=== PATIENT | male | born 1985 | race Hispanic/Latino ===

== ENCOUNTER 2022-03-04 00:04 | Emergency (ER) | payer BC ==
--- OUTSIDE RECORDS SUMMARY | 2022-03-04 00:08 | XMS REPORT | Continuity of Care Document ---
:1985 Author Organization [facility] t Address [address] [place] [address] Care Team Providers Name Role Phone PCP, DOES NOT HAVE A Primary Care Physician Unavailable Fifi NUR Attending Clinician Unavailable Doctor Unassigned, Name Attending Clinician Unavailable EFREN Attending Clinician Unavailable MANJINDER Attending Clinician Unavailable LUIS E Attending Clinician Unavailable Penny PATINO Attending Clinician Unavailable SHIRA ALLISON Attending Clinician Unavailable Penny PATINO Admitting Clinician Unavailable SHIRA ALLISON Admitting Clinician Unavailable Payers Payer Name Policy Type Policy Number Effective Date [facility] Date [id number] 2018 00:00:00 OUT OF STATE Problems Condition Condition Condition Status Onset Resolution Last Treating Co mments Source Name Details Category Date Date Treatment Clinician Date No known No known Disease Unive rs active active ity of problems problems [facility] Gastroesop Gastroesop Problem Active C ommon hageal hageal [facility] reflux reflux - [facility] disease disease [facility] Elevated Elevated Problem Active Commo n BP without BP without Sp traci diagnosis diagnosis - CH I of of St hypertensi hypertensi [facility] Rash and Rash and Problem Active Commo n nonspecifi nonspecifi Sp traci c skin c skin - [facility] eruption eruption [facility] Skin Skin Problem Active Common lesions lesions Spirit - [facility] Left Left Problem Active Common shoulder shoulder Spirit pain, pain, - [facility] unspecifie unspecifie [facility] d 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 Sp traci [facility] Prediabete Prediabete Diagnosis Active Common s s [facility] Hyperglyce Hyperglyce Problem Active C ommon reyna reyna [facility] Elevated Elevated Problem Active Commo n liver liver Spirit enzymes enzymes [facility] Fatty Fatty Diagnosis Active Common liver liver [facility] Hepatosple Hepatosple Diagnosis Active Common nomegaly nomegaly [facility] Essential Essential Diagnosis Active C ommon hypertensi hypertensi Sp traci on on [facility] Follow-up Follow-up Diagnosis Active C ommon exam exam [facility] Viral Viral Diagnosis Active Common gastroente gastroente Sp traci ritis ritis [facility] Allergies, Adverse Reactions, Alerts Allergy Allergy Status Severity Reaction(s) Onset Inactive Treating Comm ents Source Name Type Date Date Clinician NO KNOWN Drug Active Univers ALLERGIE Class it of [facility] Social History Social Habit Start Date Stop Date Quantity Comments Source Sex Assigned At [birth year] [facility] 00:00:00 00:00:00 [facility] Smoking Status Start Date Stop Date Source Unknown if ever smoked [facility] Medications Ordered Filled Start Stop Current Ordering Indication Dosage Frequency Signature Comments Components Source Medication Medication Date Date Medication? Clinician (SIG) Name Name ondansetron Yes [id number] 4mg Take 1 U nivers 4 mg 2-08 tablet by ity of disintegrat 00:00: mouth [place] ing tablet 00 every 8 Medica l (eight) Branch hours as needed for Nausea and Vomiting (N/V). enalapril 2018-09 Yes 10mg Take 10 mg Un heike 20 mg 2-08 by mouth ity of tablet 23:07: daily. [address] omeprazole 2018-09 Yes 20mg Take 20 mg U nivers 20 mg 2-08 by mouth ity of capsule 23:07: daily. [address] traMADol 50 2018- Yes [id number] 50mg Take 1 Univers mg tablet 2-08 tablet by ity o f 00:00: mouth 00 every 6 Medical (six) Branch hours as needed (pain). proMETHazin 2018-09 Yes [id number] 25mg Take 1 Univers e 25 mg 2-08 tablet by ity of tablet 00:00: mouth every 6 Medical (six) Branch hours as needed for Nausea and Vomiting (N/V). Enalapril Enalapril Yes Megan 1 tablet Common Maleate Maleate 05-31 Mill[facility] Spir it 00:00: - [facility] Prevacid Prevacid Yes Megan 1 capsule Common 05-31 [facility] Spirit 00:00: - [facility] Procedures Procedure Date / Time Performed Performing Clinician Sour e EXTERNAL PROVIDER - 2021-07-04 05:01:00 Doctor Unassigned, No Un [facility] REFERRAL Name [facility] Encounters Start End Encounter Admission Attending Care Care Encounter Source Date/Time Date/Time Type Type Clinicians Facility Department ID 2021-07-27 Emergency [facility] [id number] Univers 13:47:51 ity [facility] 2021-07-13 2021-07-13 [id number] Univers 15:30:00 15:30:00 SENDIL [id number] ity [facility] 2021-07-13 2021-07-13 [facility] [id number] Univers 15:30:00 15:30:00 [facility] 2021-07-04 Orders Doctor RAMEY [id number] Univers 00:00:00 00:00:00 Only Unassigned, SEEMA [id number] ity of [facility] [id number] Christiano as [phone] [address] 2020-09-02 2020-09-02 Outpatient R [facility] [id number] Univers 10:40:00 10:40:00 [id number] ity [facility] 2020-09-02 2020-09-02 [facility] [id number] Univers 10:40:00 10:40:00 MAYISTACIE romero [facility] 2020-06-25 2020-06-25 Outpatient R [facility] [id number] Univers 18:00:00 18:00:00 [id number] ity [facility] 2020-06-25 2020-06-25 Outpatient R MANJINDER, [facility] [id number] Univers 18:00:00 18:00:00 NORRIS alex [facility] 2020-03-29 2020-03-29 Outpatient R LUIS E, [facility] [id number] Univers 10:00:00 10:00:00 CATIE [facility] 2019-11-03 2019-11-04 Emergency [facility] [id number] Univers 21:50:45 00:01:00 ALDO romero [facility] 2019-09-05 2019-09-05 [facility] [id number] Common 08:40:00 08:40:00 t [facility] it Road [facility] 2019-09-02 2019-09-02 Emergency X ESTEFANY [facility] ERT [id number] Univers 21:43:20 23:09:00 PERI romero [facility] 2019-07-03 2019-07-03 [facility] [id number] Common 11:00:00 11:00:00 t [facility] Road [facility] it Road [facility] 2019-06-25 2019-06-25 Outpatient [facility] [id number] Common 09:45:00 09:45:00 t [facility] Road [facility] it Road [facility] 2019-06-21 2019-06-21 Outpatient [facility] [id number] Common 13:00:00 13:00:00 t [facility] [address] Spir it Road [facility] 2019-05-31 2019-05-31 Outpatient [facility] [id number] Common 11:20:00 11:20:00 t [facility] Road [facility] it Road [facility] Results This patient has no known results.
[2022-03-04 01:23] LABS: Urine Blood 3+ (Negative); Urine Glucose Negative (Negative); Urine Protein Negative (Negative); Urine Specific Gravity >=1.030 (1.005-1.030); Urine pH 5.5 (5.0-7.0)
[2022-03-04] MEDS ORDERED: ONDANSETRON 4 MG/2 ML VIAL ONE (02:14)
[2022-03-04] MEDS ORDERED: MAGNESIUM SULFATE 1 gm IVPB 1 GM/100 ML BAG IV ONE (02:14)
[2022-03-04] MEDS ORDERED: TAMSULOSIN 0.4 MG SR CAP ONE (02:14)
[2022-03-04] MEDS ORDERED: MORPHINE 4 MG/ML SYR ONE (02:14)
[2022-03-04 02:23] LABS: Absolute Lymphocytes (CBC) 1.8 K/uL (0.7-4.9); Hematocrit 40.9 % (39.6-49.0); Lymphocytes % 28.4 % (15.3-44.8); MPV 9.3 fL (7.6-11.3); RBC Red Blood Cell Count 4.96 M/uL (4.33-5.43)
--- NOTE | 2022-03-04 02:46 | EDPHYS ---
Physician Documentation [facility] Name: Anurag Hernandez Age: 36 yrs Sex: Male : 1985 Arrival Date: 03/04/2022 Time: 00:12 Bed 16 Private MD: ED Physician Yasir Ledezma HPI: 03/04 00:54 This 36 yrs old Male presents to ER via Ambulatory with complaints of rn Abdominal Pain, Back Pain. 00:54 The patient presents with pain that is acute. The symptoms are located in the low back, rn right flank. Onset: The symptoms/episode began/occurred today. The pain radiates to the abdomen and pelvis. Associated signs and symptoms: Pertinent positives: dysuria, nausea, Pertinent negatives: fever, incontinence. Modifying factors: The patient symptoms are alleviated by nothing, the patient symptoms are aggravated by any movement. Severity of symptoms: At their worst the symptoms were moderate, in the emergency department the symptoms have improved. The patient has not experienced similar symptoms in the past. The patient has not recently seen a physician. Sudden onset of right flank pain with radiation to groin, father had kidney stones, patient never diagnosed with kidney stones. Reports sensation of having to urinate but difficulty urinating. No trauma. No vomiting or diarrhea. . Historical: - Allergies: 00:33 No Known Allergies; vc1 - Home Meds: 00:33 None [Active]; vc1 - PMHx: 00:33 Hypertensive disorder; Diabetes mellitus; vc1 - PSHx: 00:33 None; vc1 - Immunization history:: Adult Immunizations up to date, Client reports having NOT received the Covid vaccine. - Social history:: Smoking status: Patient denies any tobacco usage or history of. - Family history:: not pertinent. - Hospitalizations: : No recent hospitalization is reported. ROS: 00:54 Constitutional: Negative for fever, chills, and weight loss, Cardiovascular: Negative rn for chest pain, palpitations, and edema, Respiratory: Negative for shortness of breath, cough, wheezing, and pleuritic chest pain, Abdomen/GI: Negative for vomiting, diarrhea, and constipation, Back: + right flank pain : + dysuria MS/Extremity: Negative for injury and deformity, Skin: Negative for injury, rash, and discoloration, Neuro: Negative for headache, weakness, numbness, tingling, and seizure. Exam: 00:54 Constitutional: This is a well developed, well nourished patient who is awake, alert, rn and in no acute distress. Head/Face: Normocephalic, atraumatic. Cardiovascular: Regular rate and rhythm. No pulse deficits. Respiratory: No increased work of breathing, no retractions or nasal flaring. Abdomen/GI: soft, non-tender Back: No spinal tenderness. No costovertebral tenderness. Full range of motion. Skin: Warm, dry MS/ Extremity: Pulses equal, no cyanosis. Neuro: Awake and alert, GCS 15 Vital Signs: 00:30 BP 146 / 88; Pulse 72; Resp 18; Temp 98.2; Pulse Ox 97% on R/A; Weight 120.2 kg; Height vc1 6 ft. 1 in. (185.42 cm); Pain 10/10; 02:15 BP 138 / 69; Pulse 67; Resp 18; Pulse Ox 100% on R/A; lg3 03:04 BP 141 / 87; Pulse 68; Resp 18; Pulse Ox 100% on R/A; lg3 00:30 Body Mass Index 34.96 (120.20 kg, 185.42 cm) vc1 MDM: 00:13 Patient medically screened. rn 02:43 Differential diagnosis: Hydronephrosis Ureterolithiasis. Data reviewed: vital signs, rn nurses notes, lab test result(s), radiologic studies, CT scan, and as a result, I will discharge patient. Counseling: I had a detailed discussion with the patient and/or guardian regarding: the historical points, exam findings, and any diagnostic results supporting the discharge/admit diagnosis, lab results, radiology results, the need for outpatient follow up, to return to the emergency department if symptoms worsen or persist or if there are any questions or concerns that arise at home. Response to treatment: the patient's symptoms have markedly improved after treatment, and as a result, I will discharge patient. Special discussion: Based on the patient's Hx, exam, and Dx evaluation, there is no indication for emergent surgery or inpatient Tx. It is understood by the patient/guardian that if the Sx's persist or worsen they need to return immediately for re-evaluation. I discussed with the patient/guardian in detail that at this point there is no indication for admission to the hospital. It is understood, however, that if the symptoms persist or worsen the patient needs to return immediately for re-evaluation. ED course: Pt feels much better, actually passed visible stone in urine cup. Pain down to 2/10. Sleeping comfortably. Stable vitals. Will dc home now that he has passed stone. No acute findings on ct. . 03/04 00:38 Order name: CBC with Diff; Complete Time: 02:38 rn 03/04 00:38 Order name: CMP rn 03/04 00:38 Order name: CT Stone Protocol rn 03/04 01:23 Order name: Urine Dipstick-Ancillary; Complete Time: 02:38 EDMS 03/04 01:27 Order name: Urine Dipstick-Ancillary EDMS 03/04 00:38 Order name: IV Saline Lock; Complete Time: 02:04 rn 03/04 00:38 Order name: Labs collected and sent; Complete Time: 02:04 rn 03/04 00:38 Order name: Urine Dipstick-Ancillary (obtain specimen); Complete Time: 01:58 rn Administered Medications: 02:13 Drug: Zofran (Ondansetron) 4 mg Route: IVP; Site: left antecubital; lg3 02:13 Follow up: Response: No adverse reaction lg3 02:13 Drug: Magnesium Sulfate 1 grams Route: IVPB; Infused Over: 1 hrs; Site: left lg3 antecubital; 02:13 Follow up: Response: No adverse reaction; IV Status: Completed infusion; IV Intake: lg3 100ml 02:13 Drug: Flomax (tamsulosin) 0.4 mg Route: PO; lg3 02:13 Follow up: Response: No adverse reaction lg3 02:13 Drug: morphine 4 mg Route: IVP; Infused Over: 4 mins; Site: left antecubital; lg3 02:13 Follow up: Response: No adverse reaction lg3 Disposition Summary: 03/04/22 02:45 Discharge Ordered Location: Home rn Problem: new rn Symptoms: have improved rn Condition: Stable rn Diagnosis - Urinary calculus, unspecified rn Followup: rn - With: Private Physician - When: As needed - Reason: Recheck today's complaints, Re-evaluation by your physician Discharge Instructions: - Discharge Summary Sheet rn - Kidney Stones rn - Renal Colic rn Forms: - Medication Reconciliation Form rn - Thank You Letter rn - Antibiotic international sales representative - Prescription Opioid Use rn Prescriptions: - Tramadol 50 mg Oral Tablet - take 1 tablet by ORAL route every 8 hours as needed; 12 tablet; Refills: 0, rn Product Selection Permitted Signatures: Dispatcher [employer] Yasir Panchal MD MD rn Gibson, Lacie RN RN lg3 Sharon Riggs, RN RN vc1
--- NOTE | 2022-03-04 02:46 | ER ---
Nurse's Notes [facility] Name: Anurag Hernandez Age: 36 yrs Sex: Male : 1985 Arrival Date: 03/04/2022 Time: 00:12 Bed 16 Private MD: Diagnosis: Urinary calculus, unspecified Presentation: 03/04 00:30 Chief complaint: Patient states: "I had a pain on my right side that went to my groin vc1 and my back.". Coronavirus screen: Vaccine status: Patient reports being unvaccinated. Ebola Screen: No symptoms or risks identified at this time. Initial Sepsis Screen: Does the patient meet any 2 criteria? No. Patient's initial sepsis screen is negative. Does the patient have a suspected source of infection? No. Patient's initial sepsis screen is negative. Risk Assessment: Do you want to hurt yourself or someone else? Patient reports no desire to harm self or others. Onset of symptoms was March 03, 2022 at 23:30. 00:30 Method Of Arrival: Ambulatory vc1 00:30 Acuity: JOYCE 3 vc1 Triage Assessment: 00:33 General: Appears in no apparent distress. uncomfortable, Behavior is calm, cooperative, vc1 appropriate for age. Pain: Complains of pain in right lower quadrant Pain radiates to Groin and right lower back Pain currently is 4 out of 10 on a pain scale. at worst was 10 out of 10 on a pain scale. Quality of pain is described as stabbing. GI: Reports lower abdominal pain, nausea. : Reports inability to void. Historical: - Allergies: 00:33 No Known Allergies; vc1 - Home Meds: 00:33 None [Active]; vc1 - PMHx: 00:33 Hypertensive disorder; Diabetes mellitus; vc1 - PSHx: 00:33 None; vc1 - Immunization history:: Adult Immunizations up to date, Client reports having NOT received the Covid vaccine. - Social history:: Smoking status: Patient denies any tobacco usage or history of. - Family history:: not pertinent. - Hospitalizations: : No recent hospitalization is reported. Screenin:38 Abuse screen: Denies threats or abuse. Nutritional screening: No deficits noted. vc1 Tuberculosis screening: No symptoms or risk factors identified. Fall Risk None identified. Assessment: 00:38 GI: Abd is soft and non tender. vc1 02:15 General: Appears in no apparent distress. uncomfortable, Behavior is calm, cooperative. lg3 Pain: Complains of pain in right lower quadrant. Neuro: No deficits noted. Hunt Agitation-Sedation Scale (RASS): 0 - Alert and Calm Level of Consciousness is awake, alert, obeys commands, Oriented to person, place, time, situation. Cardiovascular: No deficits noted. Denies chest pain, shortness of breath. Respiratory: No deficits noted. Airway is patent Trachea midline Respiratory effort is even, unlabored, Respiratory pattern is regular, symmetrical. GI: Abdomen is round non-distended, Bowel sounds present X 4 quads. Reports lower abdominal pain, cramping. : Reports cramping, flank(s) lower quadrant(s) lower back. EENT: No deficits noted. No signs and/or symptoms were reported regarding the EENT system. Derm: No deficits noted. No signs and/or symptoms reported regarding the dermatologic system. Skin is intact, is healthy with good turgor, Skin is dry, Skin temperature is warm. Musculoskeletal: No deficits noted. No signs and/or symptoms reported regarding the musculoskeletal system. Circulation, motion, and sensation intact. Range of motion: intact in all extremities. 03:03 Reassessment: Patient appears in no apparent distress at this time. No changes from lg3 previously documented assessment. Patient and/or family updated on plan of care and expected duration. Pain level reassessed. Patient states feeling better. Patient states symptoms have improved. Vital Signs: 00:30 BP 146 / 88; Pulse 72; Resp 18; Temp 98.2; Pulse Ox 97% on R/A; Weight 120.2 kg; Height vc1 6 ft. 1 in. (185.42 cm); Pain 10/10; 02:15 BP 138 / 69; Pulse 67; Resp 18; Pulse Ox 100% on R/A; lg3 03:04 BP 141 / 87; Pulse 68; Resp 18; Pulse Ox 100% on R/A; lg3 00:30 Body Mass Index 34.96 (120.20 kg, 185.42 cm) vc1 ED Course: 00:12 Patient arrived in ED. ja2 00:13 Yasir Ledezma MD is Attending Physician. rn 00:33 Triage completed. vc1 00:38 Arm band placed on left wrist. vc1 00:38 Patient has correct armband on for positive identification. vc1 01:01 CT Stone Protocol In Process Unspecified. EDMS 01:45 Mackenzie Gutiérrez, RN is Primary Nurse. lg3 01:45 Urine Dipstick-Ancillary Sent. lg3 02:04 CBC with Diff Sent. lg3 02:04 CMP Sent. lg3 02:04 Inserted saline lock: 20 gauge in left antecubital area, using aseptic technique. Blood lg3 collected. 03:06 No provider procedures requiring assistance completed. IV discontinued, intact, lg3 bleeding controlled, No redness/swelling at site. Pressure dressing applied. Administered Medications: 02:13 Drug: Zofran (Ondansetron) 4 mg Route: IVP; Site: left antecubital; lg3 02:13 Follow up: Response: No adverse reaction lg3 02:13 Drug: Magnesium Sulfate 1 grams Route: IVPB; Infused Over: 1 hrs; Site: left lg3 antecubital; 02:13 Follow up: Response: No adverse reaction; IV Status: Completed infusion; IV Intake: lg3 100ml 02:13 Drug: Flomax (tamsulosin) 0.4 mg Route: PO; lg3 02:13 Follow up: Response: No adverse reaction lg3 02:13 Drug: morphine 4 mg Route: IVP; Infused Over: 4 mins; Site: left antecubital; lg3 02:13 Follow up: Response: No adverse reaction lg3 Medication: 02:15 VIS not applicable for this client. lg3 Intake: 02:13 IV: 100ml; Total: 100ml. lg3 Outcome: 02:45 Discharge ordered by . rn 03:06 Discharged to home ambulatory. lg3 03:06 Condition: stable 03:06 Discharge instructions given to patient, Instructed on discharge instructions, medication usage, Demonstrated understanding of instructions, medications, Prescriptions given X 1. 03:11 Patient left the ED. lg3 Signatures: Dispatcher [employer] EDMI Yasir Ledezma MD MD rn Gibson, Lacie, RN RN lg3 Catrachita Lacey Vanessa RN RN vc1
[2022-03-04 02:52] LABS: Albumin 3.8 g/dL (3.4-5.0); Bilirubin Total 0.5 mg/dL (0.2-1.0); Potassium 3.7 mmol/L (3.5-5.1); Protein, Total 7.4 g/dL (6.4-8.2)
[2022-03-04 03:27] VITALS: TEMP 97.6
[2022-03-04 03:28] VITALS: BP 168/84; O2SAT 98
--- NOTE | 2022-03-04 13:32 | RAD REPORT ---
EXAM DESCRIPTION: CT - Stone Protocol - 03/04/2022 12:59 am CLINICAL HISTORY: 36 years Male Flank pain, kidney stone suspected CLINICAL HISTORY: Axial CT imaging of the abdomen and pelvis was performed without oral or intraveno us contrast. Sagittal and coronal reconstructed images were then performed. The CT study is perform ed according to ALARA (as low as reasonably achievable) or ALARA/IMAGE GENTLY, with automatic adjustm ent of mA and/or kV according to patient size. Performed on: 03/04/2022 at 12:53 AM COMPARISON: Liver ultrasound report from 08/31/2019. The images were not available for review. FINDINGS: Lung bases: The lung bases are clear. Liver: The liver is normal in size and configuration. There is a 1.2 cm sharply marginated hypodense lesion in the dome of the left hepatic lobe most likely representing an incidental hepatic cyst. Live r attenuation is otherwise within normal limits. Spleen: The spleen is top normal in size and is normal in configuration and attenuation. No focal spl enic abnormalities are appreciated on this unenhanced scan. Gallbladder and bile duct: The gallbladder is moderately contracted on this examination. There is n o biliary ductal dilatation. Pancreas: The pancreas is grossly normal in size and configuration. Adrenal Glands: The adrenal glands are normal in size and configuration. Kidneys: The kidneys are normal in size and configuration. There is no evidence of hydronephrosis. Th ere is a punctate nonobstructing calcification in the midpole of the right kidney. No focal renal abn ormalities are identified. Stomach: The stomach is grossly normal. There is no definite hiatal hernia. Bowel: The bowel gas pattern is non specific and non obstructive. Appendix: The appendix is normal. Free air: There is no evidence of free air. Free fluid: There is no evidence of free fluid. Vasculature: The aorta is normal in caliber and contour. The inferior vena cava is grossly unremarkab le. Lymphadenopathy: No pathologic lymphadenopathy is identified. Bladder: The bladder is incompletely distended on this examination. Reproductive: The prostate gland is grossly within normal limits. Bones: No acute osseous abnormalities are identified. Soft tissues: No acute soft tissue abnormalities are identified. IMPRESSION: 1. No evidence of acute intra-abdominal or intrapelvic pathology. There is no evidence of urinary tract obstruction. There is a punctate nonobstructing calcification in the midpole of the right kidney. 2. The spleen is top normal in size. 3. There is a 1.2 cm sharply marginated hypodense lesion in the dome of the left hepatic lobe most likely representing an incidental hepatic cyst. 4. The gallbladder is moderately contracted on this examination. There is no biliary ductal dilatat ion. Electronically signed by: Sofia Jarvis DO 03/04/2022 1:25 AM CDT Due to temporary technical issues with the PACS/Fluency reporting system, reports are being signed by the in house radiologists without review as a courtesy to insure prompt reporting. The interpreting radiologist is fully responsible for the content of the report.
== END 2022-03-04 03:11 | disposition home or self-care (01) ==
LOC: ER 00:04
DX: N20.9 Urinary calculus, unspecified (principal); E11.9 Type 2 diabetes mellitus without complications; I10 Essential (primary) hypertension
CPT/HCPCS: 85025; 36415; 81003; 80053; 76377; 74176; 96375; 96374; 99284; J3475; J2405